=== PATIENT | male | born 1945 | race Caucasian/White ===

== ENCOUNTER → 2019-03-06 | Day surgery (SDC) | payer MEDICARE, OTHER ==
[~2019-03-06] MED LIST: Lidocaine 1% 20 ML MDV ONE
[2019-03-06 13:46] VITALS: BP 160/75
== END ==
LOC: CC.SDS 10:21
PROVIDERS: ATTEND Family Medicine
DX: I87.2 Venous insufficiency (chronic) (peripheral) (principal); I83.811 Varicose veins of right lower extremity with pain
CPT/HCPCS: A4216

== ENCOUNTER → 2019-03-13 | Day surgery (SDC) | payer MEDICARE, OTHER ==
[2019-03-13 13:11] VITALS: BP 168/78
== END ==
LOC: CC.SDS 10:22
PROVIDERS: ATTEND Family Medicine
DX: I87.2 Venous insufficiency (chronic) (peripheral) (principal)